=== PATIENT | female | born 1950 | race Caucasian/White ===

== ENCOUNTER 2017-01-15 10:31 | Emergency (ER) | payer MEDICARE, OTHER ==
--- NOTE | 2017-01-15 10:51 | ED PDOC ---
Upper Extremity Pain/Injury Time Seen by Provider: 01/15/17 10:41 Chief Complaint (Provider): right shoulder pain History Per: Patient Additional Complaint(s): 66-year-old right-hand dominant female presents to emergency Department with pain to right shoulder and upper arm that started yesterday. Patient denies any trauma or injury. Yesterday she took Naprosyn but this did not help the pain. Patient cannot lift her arm without severe discomfort. No associated chest pain , shortness of breath or dyspnea on exertion. Past Medical History Reviewed: Historical Data, Nursing Documentation, Vital Signs - Medical History PMH: HTN, Hypercholesterolemia - Surgical History Other surgeries: fibroid removal, uterine ablation - Family History Family History: States: No Known Family Hx - Living Arrangements Living Arrangements: With Family - Social History Current smoker - smoking cessation education provided: No Alcohol: None Drugs: Denies - Home Medications Home Medications: Ambulatory Orders Medication Instructions Recorded Hydrochlorothiazide/Proprano 1 tab PO DAILY 05/26/13 [Propranolol/Hctz 25 mg-40 mg] Ondansetron ODT [Zofran ODT] 1 odt PO BID PRN #6 odt 05/26/13 Pravastatin Sodium [Pravastatin] 20 mg PO DAILY 05/26/13 Cyclobenzaprine [Cyclobenzaprine 10 mg PO TID PRN #20 tab 01/15/17 HCl] Ibuprofen [Motrin Tab] 800 mg PO Q8 PRN #20 tab 01/15/17 traMADol [Ultram] 50 mg PO TID PRN #15 tab 01/15/17 - Allergies Allergies/Adverse Reactions: Allergies Allergy/AdvReac Type Severity Reaction Status Date / Time No Known Allergies Allergy Unverified 05/26/13 17:40 Review of Systems ROS Statement: Except As Marked, All Systems Reviewed And Found Negative Cardiovascular: Negative for: Chest Pain Musculoskeletal: Positive for: Shoulder Pain (right shoulder pain, no trauma or injury) Physical Exam - Reviewed Nursing Documentation Reviewed: Yes Vital Signs Reviewed: Yes - Physical Exam Appears: Positive for: Well, Non-toxic, No Acute Distress Skin: Negative for: Rash Eye Exam: Positive for: Normal appearance Neck: Positive for: Painless ROM Cardiovascular/Chest: Positive for: Regular Rate, Rhythm Respiratory: Positive for: Normal Breath Sounds Extremity: Positive for: Other (Diffuse tenderness to right shoulder region with decreased range of motion, full range of motion of right elbow and wrist, strong right handgrip, normal distal sensation, normal capillary refill) Neurologic/Psych: Positive for: Alert, Oriented - ECG O2 Sat by Pulse Oximetry: 99 Pulse Ox Interpretation: Normal - Other Rad right shoulder x-ray X-Ray: Interpreted by Me, Viewed By Me X-Ray Interpretation: no fx, no dis, suspect calcific tendinitis Medical Decision Making Medical Decision Makin66 year old with right shoulder pain Plan: X-ray right shoulder IM toradol PO tramadol PO flexeril Patient feels much better after medications administered in ED. Patient is declining sling. Prescriptions given for Motrin, Flexeril and tramadol. Patient was referred to orthopedist on-call for follow-up. Disposition - Clinical Impression Clinical Impression: Tendinitis of shoulder - Patient ED Disposition Is Patient to be Admitted: No Counseled Patient/Family Regarding: Studies Performed, Diagnosis, Need For Followup, Rx Given - Disposition Referrals: Meliton Canales III, MD [Staff Provider] - Disposition: Routine/Home Disposition Time: 12:07 Condition: STABLE Additional Instructions: Take prescription medications as directed as needed for pain. Follow up with primary doctor or orthopedist in 2-3 days. Prescriptions: Cyclobenzaprine [Cyclobenzaprine HCl] 10 mg PO TID PRN #20 tab PRN Reason: Muscle Spasm Ibuprofen [Motrin Tab] 800 mg PO Q8 PRN #20 tab PRN Reason: Pain, Moderate (4-7) traMADol [Ultram] 50 mg PO TID PRN #15 tab PRN Reason: Pain, Moderate (4-7) Instructions: Tendinitis (ED), Shoulder Pain (ED)
[2017-01-15 11:21] VITALS: BMI 25.8
[2017-01-15 12:14] VITALS: BP 149/52; PULSE 80; RESP 18; TEMP 96; O2SAT 99
--- NOTE | 2017-01-15 14:00 | RAD ---
PROCEDURE: Radiographs of the Right Shoulder HISTORY: pain COMPARISON: No prior. FINDINGS: BONES: No acute fracture or destructive bony lesion identified. JOINTS: Limited degenerative changes seen the acromioclavicular joint as well as the glenohumeral articulation. No subluxation or dislocation appreciable. SOFT TISSUES: Normal. OTHER FINDINGS: None. IMPRESSION: Limited degenerative changes seen at the right shoulder without fracture or dislocation.
== END 2017-01-15 12:40 | disposition home or self-care (01) ==
LOC: H.ER 10:31
DX: M77.8 Other enthesopathies, not elsewhere classified (principal)
CPT/HCPCS: 73030; 96372; 99283; J1885

== ENCOUNTER 2017-12-11 07:30 | Day surgery (SDC) | payer OTHER ==
[2017-12-11] MEDS ORDERED: Lactated Ringer's 500 ML IV ONE (07:56)
[2017-12-11] MEDS ORDERED: Propofol 10 mg/ml Inj (20 ML) ONE (08:18)
[2017-12-11 09:42] VITALS: RESP 18; TEMP 97.1
[2017-12-11 09:45] VITALS: BP 115/70; PULSE 73; O2SAT 100
== END 2017-12-11 12:40 | disposition home or self-care (01) ==
LOC: H.ENDO 07:30
PROVIDERS: ATTEND Internal Medicine Gastroenterology
DX: K29.70 Gastritis, unspecified, without bleeding (principal); R10.13 Epigastric pain; Z86.73 Personal history of transient ischemic attack (TIA), and cerebral infarction without residual deficits; E78.5 Hyperlipidemia, unspecified; I10 Essential (primary) hypertension; I65.29 Occlusion and stenosis of unspecified carotid artery; K44.9 Diaphragmatic hernia without obstruction or gangrene; K31.89 Other diseases of stomach and duodenum
CPT/HCPCS: 43239; 82948; 88305; J2001; J2704; J7120